=== PATIENT | female | born 1950 | race Caucasian/White ===

== ENCOUNTER 2022-11-01 08:54 | Outpatient (CLI) | payer MEDICARE, OTHER | END 2022-11-01 08:55 | disposition home or self-care (01) | LOC: CSHMAMMO 08:54 | PROVIDERS: ATTEND Family Medicine | DX: Z12.31 Encounter for screening mammogram for malignant neoplasm of breast (principal) | CPT/HCPCS: 77063; 77067 ==

== ENCOUNTER 2022-11-01 09:24 | Outpatient (CLI) | payer MEDICARE | END 2022-11-01 09:25 | disposition home or self-care (01) | LOC: CSHCT 09:24 | PROVIDERS: ATTEND Family Medicine | DX: Z12.2 Encounter for screening for malignant neoplasm of respiratory organs (principal); F17.210 Nicotine dependence, cigarettes, uncomplicated; J98.4 Other disorders of lung; E27.8 Other specified disorders of adrenal gland | CPT/HCPCS: 71271 ==

== ENCOUNTER 2024-02-10 12:50 | Outpatient (CLI) | payer MEDICARE | END 2024-02-10 12:51 | disposition home or self-care (01) | LOC: CSHCT 12:50 | PROVIDERS: ATTEND Family Medicine | DX: Z12.2 Encounter for screening for malignant neoplasm of respiratory organs (principal); F17.210 Nicotine dependence, cigarettes, uncomplicated; Z12.31 Encounter for screening mammogram for malignant neoplasm of breast | CPT/HCPCS: 71271; 77063; 77067 ==